=== PATIENT | male | born 1950 | race Caucasian/White ===

== ENCOUNTER 2023-09-20 13:29 | Outpatient (CLI) | payer MEDICARE, SELFPAY ==
--- NOTE | 2023-09-20 13:30 | MR_ITS ---
FINAL REPORT CLINICAL HISTORY: Mulitple falls FINDINGS: Multiplanar MR imaging of the brain was performed without contrast. Motion artifact seen on many sequences. There is mild age-appropriate atrophy. There are scattered foci of increased T2 signal in the cerebral white matter that have a nonspecific appearance but likely represent mild chronic ischemic/gliotic changes. There is no evidence of intracranial hemorrhage or mass. No abnormal ventricular dilatation is identified. No abnormal extra-axial fluid collection is seen. No abnormality is seen on the diffusion weighted images. The posterior fossa and brainstem are unremarkable. Normal major vessel vascular flow voids are seen. IMPRESSION: Age-appropriate atrophy and mild chronic ischemic/gliotic changes. No acute intracranial abnormality. Reviewed, Interpreted and Dictated by Sudheer Hancock III, MD Transcribed by Kendy Soto Authenticated and [facility]
== END 2023-09-20 23:59 ==
LOC: RAD 13:30
PROVIDERS: PCP Specialist; Visit Provider Specialist
DX: R29.6 Repeated falls (principal); R26.9 Unspecified abnormalities of gait and mobility; R51.9 Headache, unspecified
CPT/HCPCS: 70551; 94762

== ENCOUNTER 2023-10-06 12:14 | Outpatient (CLI) | payer MEDICARE, SELFPAY ==
--- NOTE | 2023-10-06 12:21 | XR_ITS ---
FINAL REPORT CLINICAL HISTORY: Eval. for myelopathy FINDINGS: CERVICAL SPINE COMPLETE FLEXION/EXTENSION Six views demonstrate no acute fracture. There are mild and moderate degenerative changes. There is mild anterolisthesis of C4 on 5. There is no abnormal movement with flexion and extension maneuvers. Bilateral coronary artery calcification is identified. IMPRESSION: Degenerative changes as above. LUMBAR SPINE Three views demonstrate no acute fracture. There are mild and moderate degenerative changes with osteophytes. Vascular calcification is identified. There is no malalignment. IMPRESSION: Degenerative changes as above. Reviewed, Interpreted and Dictated by Sudheer Hancock III, MD Transcribed by Martha Kumari Authenticated and [facility]
== END 2023-10-06 23:59 ==
LOC: RAD 12:16
PROVIDERS: Visit Provider Specialist
DX: M54.2 Cervicalgia (principal); R29.6 Repeated falls; R26.9 Unspecified abnormalities of gait and mobility
CPT/HCPCS: 72084

== ENCOUNTER → 2023-10-09 13:27 | Outpatient (CLI) | payer MEDICARE, SELFPAY | LOC: SL 13:28 | PROVIDERS: PCP Family Medicine; Visit Provider Nurse Practitioner Family | DX: G47.33 Obstructive sleep apnea (adult) (pediatric) (principal) | CPT/HCPCS: 94762 ==

== ENCOUNTER → 2023-10-25 20:30 | Outpatient (CLI) | payer MEDICARE, SELFPAY | LOC: SL 20:31 | PROVIDERS: PCP Family Medicine; Visit Provider Specialist | DX: G47.33 Obstructive sleep apnea (adult) (pediatric) (principal) | CPT/HCPCS: 95811 ==

== ENCOUNTER 2023-11-27 19:38 | Emergency (ER) | payer MEDICARE, SELFPAY ==
[2023-11-27] VITALS (7 sets, daily range): BP systolic 115–155; BP diastolic 75–103; PULSE 86–100; RESP 16–18; TEMP 36.6–36.9; O2SAT 94–96; BMI 37.2
--- NOTE | 2023-11-27 19:47 | HMH.EDGENADL ---
Discharge Plan Disposition Patient Disposition: Home, Self-Care Condition: Good Prescriptions Prescriptions: New cefadroxil 500 mg capsule 500 mg PO BID 7 Days Qty: 14 0RF oxycodone 5 mg tablet 5 mg PO Q8H PRN (Reason: pain) 3 Days Qty: 9 0RF No Action ketoconazole 2 % cream topical Patient Comments: APPLY CREAM TOPICALLY TO AFFECTED AREA TWICE DAILY NEEDED WHEN FLARED. rosuvastatin 20 mg tablet 20 mg PO DAILY Patient Comments: TAKE 1 TABLET BY MOUTH ONCE DAILY carvedilol 25 mg tablet 25 mg PO ONCE Patient Comments: TAKE 1 TABLET BY MOUTH ONCE DAILY FOR 90 DAYS Jardiance 25 mg tablet 25 mg PO DAILY Patient Comments: TAKE 1 TABLET BY MOUTH ONCE DAILY Januvia 100 mg tablet 100 mg PO DAILY Patient Comments: TAKE 1 TABLET BY MOUTH ONCE DAILY Eliquis 5 mg tablet 5 mg PO BID albuterol sulfate 0.63 mg/3 mL solution for nebulization 0.63 mg inhalation Q4-6H PRN tamsulosin 0.4 mg capsule 0.4 mg PO HS meloxicam 7.5 mg tablet 7.5 mg PO DAILY Patient Comments: TAKE 1 TABLET BY MOUTH ONCE DAILY FOR 14 DAYS carbidopa-levodopa 25-100 mg tablet 2 tab PO TID Qty: 180 3RF Referrals Follow up/Referrals: Daniel Sy MD [Primary Care Provider] - See instructions Activity Restrictions/Add. Instructions Additional Instructions/Restrictions: You have been evaluated in the ED for your complaints. You may follow-up with your PCP in the next 3 to 5 days. Please return to ED for any new or worsening symptoms. As discussed, please keep your pressure lacerations clean and dry over the next week and do not soak the lacerations and water to the sutures do not dissolve too early. They should resolve over the next 7 to 10 days. You may apply skin lightening creams to decrease scarring. You should receive a call from [facility] at for follow-up concerning your nasal bone fractures. behavioral health consultant?[address] [place] [address] [phone] Clinical Impressions Clinical Impression: Fall, Nasal bones, open fracture, Left shoulder pain, Facial laceration Discharge ED Provider: Vlad Carrillo Adult [facility] General Chief complaint: Fall Stated complaint: Fall from standing position Time Seen by Provider: 11/27/23 19:46 History of Present Illness HPI narrative: 73-year-old male with past medical history significant for ROHITH, HTN, pulmonary embolism, DVT, DM 2, CAD, atrial fibrillation, on Eliquis, presents today for evaluation after having a fall. Patient states that he tripped over his puppy, stretched his arm out to catch his fall and hit his head on the corner of the door. He did not lose consciousness. Complains of left shoulder pain. Denies any neck pain or back pain. Denies any chest wall pain or abdominal pain. Related Data Home Medications Medication Instructions Recorded Confirmed albuterol sulfate 0.63 mg/3 mL 0.63 mg inhalation Q4-6H PRN 08/30/23 10/25/23 solution for nebulization apixaban 5 mg tablet (Eliquis) 5 mg PO BID 08/30/23 10/25/23 carvedilol 25 mg tablet 25 mg PO ONCE 08/30/23 10/25/23 empagliflozin 25 mg tablet 25 mg PO DAILY 08/30/23 10/25/23 (Jardiance) ketoconazole 2 % topical cream applic topical 08/30/23 10/25/23 rosuvastatin 20 mg tablet 20 mg PO DAILY 08/30/23 10/25/23 sitagliptin phosphate 100 mg 100 mg PO DAILY 08/30/23 10/25/23 tablet (Januvia) meloxicam 7.5 mg tablet 7.5 mg PO DAILY 10/25/23 10/25/23 tamsulosin 0.4 mg capsule 0.4 mg PO HS 10/25/23 10/25/23 Previous Rx's Medication Instructions Recorded carbidopa 25 mg-levodopa 100 mg 2 tab PO TID Parkinsonian syndrome 10/25/23 tablet #180 tabs cefadroxil 500 mg capsule 500 mg PO BID 7 days #14 caps 11/27/23 oxycodone 5 mg tablet 5 mg PO Q8H PRN pain 3 days #9 tabs 11/27/23 Allergies Allergy/AdvReac Type Severity Reaction Status Date / Time No Known Allergies Allergy Verified 08/30/23 09:04 [facility] Disclaimer: The information contained in this section may have been updated after the patient was seen, as this information can be updated by other users. Medical History (Updated 11/27/23 @ 22:59 by Vlad Carrillo DO) ROHITH (obstructive sleep apnea) Neck pain Headache Cataracts, bilateral Arthritis Surgical History History of hernia surgery History of bilateral cataract extraction Family History Other COPD (chronic obstructive pulmonary disease) Coronary artery disease Hyperlipidemia Hypertension Social History Smoking Status: Former smoker alcohol intake: current alcohol intake frequency: other substance use type: denies use current occupational status: retired Travel in the last 8 weeks: None household members: spouse housing: house marital status: number of children: 7 ROS Obtained: Yes All systems reviewed & no additional complaints except as documented Physical Exam General General appearance: alert and in no apparent distress Head Head exam: normocephalic and other (4 cm laceration across the midline of the forehead. There is also a 1 cm laceration over the nose) Eye Eye exam: Present normal appearance, PERRL and EOMI ENT ENT exam: Present normal oropharynx and mucous membranes moist Neck Neck exam: Present full ROM; Absent meningismus Respiratory Respiratory exam: Absent respiratory distress, wheezes, stridor or accessory muscle use Cardiovascular Cardiovascular exam: Present normal rhythm Abdominal Exam Abdominal exam: Present soft; Absent distention, tenderness, guarding, rebound or rigidity Extremities Exam Extremities exam: Present tenderness (Tenderness to palpation of the left shoulder and left humerus without external signs extremity. There is a skin tear located at the left elbow. And on the left forearm.) Neurological Exam Neurological exam: Present alert, oriented X3 and CN II-XII intact; Absent motor sensory deficit Psychiatric Psychiatric exam: Present normal affect and normal mood Skin Skin exam: Present warm and dry Medical Decision Making Medical Records Medical records reviewed: Yes I reviewed the patient's medical records. Zachariah Inquiry Pt receiving controlled substance: No Zachariah was queried for this patient: No Vital Signs: 11/27/23 19:38 11/27/23 20:41 11/27/23 21:01 Temperature 97.9 F Temperature Source Oral Pulse Rate 95 H 97 H Pulse Rate [Left] 95 H Respiratory Rate 18 Blood Pressure 155/93 H 134/91 H Blood Pressure [Right Arm] 129/76 Blood Pressure Mean 103 104 Blood Pressure Mean [Right Arm] 93 Blood Pressure Position 02 Sat by Pulse Oximetry 95 95 95 Oxygen Delivery Method Room Air Room Air Room Air 11/27/23 21:31 11/27/23 21:31 11/27/23 22:01 Temperature Temperature Source Pulse Rate 94 H 99 H 98 H Pulse Rate [Left] Respiratory Rate 16 Blood Pressure 149/99 H 149/99 H 154/103 H Blood Pressure [Right Arm] Blood Pressure Mean 110 109 Blood Pressure Mean [Right Arm] Blood Pressure Position Sitting 02 Sat by Pulse Oximetry 96 94 L 94 L Oxygen Delivery Method Room Air Room Air Room Air 11/27/23 22:31 Temperature Temperature Source Pulse Rate 86 Pulse Rate [Left] Respiratory Rate Blood Pressure 142/95 H Blood Pressure [Right Arm] Blood Pressure Mean 99 Blood Pressure Mean [Right Arm] Blood Pressure Position 02 Sat by Pulse Oximetry 95 Oxygen Delivery Method Room Air Lab Data Lab Results 11/27/23 20:00: WBC 11.4 H, RBC 5.63, Hgb 17.5, Hct 52.3 H, MCV 93.0, MCH 31.2, MCHC 33.5, RDW 13.9, Plt Count 192, MPV 7.5, Neut % (Auto) 74.7, Lymph % (Auto) 17.3, [place] % (Auto) 6.1, Eos % (Auto) 1.1, Baso % (Auto) 0.8, Neut # (Auto) 8.5 H, Lymph # (Auto) 2.0, [place] # (Auto) 0.7, Eos # (Auto) 0.1, Baso # (Auto) 0.1, PT 11.4, INR 1.06, Sodium 139, Potassium 4.3, Chloride 107, Carbon Dioxide 24, Anion Gap 12.3, BUN 19, Creatinine 0.90, Estimated Creat Clear 113, Estimated GFR 83, Est GFR ( Amer) 100, Glucose 158 H, Calcium 9.6, Total Bilirubin 1.1, AST 31, ALT 26, Alkaline Phosphatase 89, Total Protein 7.7, Albumin 4.5, Globulin 3.2, Albumin/Globulin Ratio 1.4 11/27/23 20:00 11/27/23 20:00 Orders (Tests/Meds): ED MEDICATIONS Discontinued Medications Generic Name Dose Route Start Last Admin Trade Name Freq PRN Reason Stop Dose Admin Cefazolin Sodium 2 gm 11/27/23 21:01 11/27/23 21:14 Cefazolin 2gm Vial IV 11/27/23 21:02 2 gm ONCE ONE Administration Lidocaine/Prilocaine 5 gm 11/27/23 19:51 11/27/23 20:39 Lidocaine/Prilocaine 5gm Tube TP 11/27/23 19:52 5 gm ONCE ONE Administration Morphine Sulfate 4 mg 11/27/23 19:51 11/27/23 20:39 Morphine 4mg/Ml Syringe IV 11/27/23 19:52 4 mg ONCE ONE Administration Ondansetron HCl 4 mg 11/27/23 19:51 11/27/23 20:39 Ondansetron 4mg/2ml Vial IV 11/27/23 19:52 4 mg ONCE ONE Administration ORDERS Category Date Time Status CT cervical spine wo con Stat Cat Scan 11/27/23 19:[address] facial bones wo con Stat Cat Scan 11/27/23 19:[address] head/brain wo con Stat Cat Scan 11/27/23 19:51 Completed Elbow XR left 2 views [XR elbow LT 2V] Stat Exams 11/27/23 19:51 Completed Humerus XR left [XR humerus LT] Stat Exams 11/27/23 19:51 Completed Shoulder XR left minimum 2 views [XR shoulder LT min 2V Exams 11/27/23 19:51 Completed ] Stat CBC w/Auto Diff [Complete Blood Count Auto Diff] Stat Lab 11/27/23 20:00 Completed CMP [Comprehensive Metabolic Panel] Stat Lab 11/27/23 20:00 Completed PT INR [Prothrombin Time INR] Stat Lab 11/27/23 20:00 Completed Medical Decision Narrative: 73-year-old male with past medical history significant for ROHITH, HTN, pulmonary embolism, DVT, DM 2, CAD, atrial fibrillation, on Eliquis, presents today for evaluation after having a fall. Patient states that he tripped over his puppy, stretched his arm out to catch his fall and hit his head on the corner of the door. He did not lose consciousness. Complains of left shoulder pain. Tetanus is up-to-date. On assessment he was hemodynamically stable and in no acute distress. Afebrile. There was no midline translocation of the C/T/L-spine. He did have a 4 cm laceration across the midline of the forehead and a 1 cm laceration over the nose. No chest or abdominal tenderness. He did have tenderness over the left shoulder and left humerus. There was a skin tear over the left elbow and left forearm. No other extremity tenderness. Diagnoses include but limited to intracranial bleed, extremity fracture, facial laceration, among others. Patient's lab work today has been remarkable for a WBC of 11.4. PT/INR within range at 11.4/1.06.. X-ray imaging of the right shoulder, right humerus and right elbow are without any acute bony abnormalities on my informal interpretation. Radiology report confirmed. Head CT without any acute abnormalities. Facial CT reveals a mildly displaced comminuted nasal bone fracture. Nondisplaced fracture of anterior nasal septum. I did repair patient's forehead laceration with 1 running suture, 5-0 fast gut. Nose laceration repaired with three 5-0 fast gut simple interrupted sutures. Will send home with Romie as well as referral to plastic surgery given his nasal fractures. Patient verbalized understanding agree with plan. Provided with return precautions. Subsequent discharged stable in no acute distress. Procedures Laceration Laceration 1: Site: face (forehead) Size (cm): 4 Description: linear Depth: simple, single layer Local Anesthetic: lidocaine 1% Amount of anesthesia used (mL): 3 Pre-repair: wound explored (Irrigated with Hibiclens and normal saline.) Skin layer closed with: other (Fast gut) Size (cm): 5-0 Number of sutures: 1 Technique: running Laceration 2: Site: face (Nose) Size (cm): 1 Description: linear Depth: simple, single layer Local Anesthetic: lidocaine 1% Amount of anesthesia used (mL): 2 Pre-repair: wound explored and irrigated extensively (Irrigated with saline and Hibiclens) Skin layer closed with: other (Fast-absorbing gut) Size (cm): 5-0 Number of sutures: 3 Technique: simple, interrupted Critical Care Critical Care Time Critical Care Time: No
--- NOTE | 2023-11-27 19:51 | CT_ITS ---
PROCEDURE INFORMATION: Exam: CT Maxillofacial Without Contrast Exam date and time: 11/27/2023 8:05 PM Age: 73 years old Clinical indication: Pain; Additional info: Facial pain TECHNIQUE: Imaging protocol: Computed tomography of the face without contrast. Radiation optimization: All CT scans at this facility use at least one of these dose optimization techniques: automated exposure control; mA and/or kV adjustment per patient size (includes targeted exams where dose is matched to clinical indication); or iterative reconstruction. COMPARISON: CT HEAD/BRAIN WO CON 11/27/2023 8:04 PM FINDINGS: Orbital cavities: Orbits are normal. Globes are unremarkable. Bones: Mildly displaced and comminuted bilateral nasal bone fractures. Paranasal sinuses: Mild bilateral ethmoid sinus mucosal thickening. The remaining paranasal sinuses are within normal limits. Soft tissues: Frontal scalp soft tissue swelling and subcutaneous gas foci consistent with a laceration. Vasculature: Extensive atherosclerotic plaque in the distal internal carotid arteries. Nasal cavity: Nondisplaced fracture of the anterior nasal septum. IMPRESSION: 1. Mildly displaced and comminuted bilateral nasal bone fractures. 2. Nondisplaced fracture of the anterior nasal septum. 3. Frontal scalp soft tissue swelling and subcutaneous gas foci consistent with a laceration.
--- NOTE | 2023-11-27 19:51 | XR_ITS ---
PROCEDURE INFORMATION: Exam: XR Left Elbow Exam date and time: 11/27/2023 8:04 PM Age: 73 years old Clinical indication: Pain; Elbow; Left TECHNIQUE: Imaging protocol: Radiologic exam of the left elbow. Views: 1 or 2 views. COMPARISON: CR XR HUMERUS LT 11/27/2023 8:04 PM FINDINGS: Bones/joints: No fracture or dislocation. No significant arthropathy. Calcifications adjacent to the medial humeral epicondyle are likely the sequela of chronic medial epicondylitis. Soft tissues: Normal. IMPRESSION: No acute findings.
--- NOTE | 2023-11-27 19:51 | CT_ITS ---
PROCEDURE INFORMATION: Exam: CT Head Without Contrast Exam date and time: 11/27/2023 8:04 PM Age: 73 years old Clinical indication: Pain; Additional info: Head injury TECHNIQUE: Imaging protocol: Computed tomography of the head without contrast. Radiation optimization: All CT scans at this facility use at least one of these dose optimization techniques: automated exposure control; mA and/or kV adjustment per patient size (includes targeted exams where dose is matched to clinical indication); or iterative reconstruction. COMPARISON: MR HEAD/BRAIN WO CON 09/20/2023 1:55 PM FINDINGS: Brain: Mild supratentorial white matter hypodensities are likely the sequela of chronic small vessel ischemic disease. Mild atrophy. No hemorrhage, edema, or mass effect. Cerebral ventricles: No ventriculomegaly. Paranasal sinuses: Visualized sinuses are unremarkable. No fluid levels. Mastoid air cells: Visualized mastoid air cells are well aerated. Bones: Mildly displaced and comminuted bilateral nasal bone fractures. Soft tissues: Frontal scalp soft tissue swelling and subcutaneous gas foci consistent with a laceration. IMPRESSION: 1. No acute intracranial findings. 2. Frontal scalp soft tissue swelling and subcutaneous gas foci consistent with a laceration. 3. Mildly displaced and comminuted bilateral nasal bone fractures.
--- NOTE | 2023-11-27 19:51 | CT_ITS ---
PROCEDURE INFORMATION: Exam: CT Cervical Spine Without Contrast Exam date and time: 11/27/2023 8:07 PM Age: 73 years old Clinical indication: Pain; Additional info: Fall TECHNIQUE: Imaging protocol: Computed tomography of the cervical spine without contrast. Radiation optimization: All CT scans at this facility use at least one of these dose optimization techniques: automated exposure control; mA and/or kV adjustment per patient size (includes targeted exams where dose is matched to clinical indication); or iterative reconstruction. COMPARISON: CR XR MULTIPLE SPINE 6+V 10/06/2023 12:25 PM FINDINGS: Bones: No cervical spine fracture or acute listhesis. [id number] multilevel degenerative disc disease is greatest at C3-C4. [id number] multilevel bilateral facet arthropathy is greatest on the left. 1 mm of grade 1 anterolisthesis of C2 over C3 is secondary to facet arthropathy. Lungs: Lung apices are normal. Soft tissues: Unremarkable. IMPRESSION: No cervical spine fracture or acute listhesis.
--- NOTE | 2023-11-27 19:51 | XR_ITS ---
PROCEDURE INFORMATION: Exam: XR Left Humerus Exam date and time: 11/27/2023 8:04 PM Age: 73 years old Clinical indication: Pain; Upper arm; Left TECHNIQUE: Imaging protocol: Radiologic exam of the left humerus. Views: 2 or more views. COMPARISON: CR XR SHOULDER LT MIN 2V 11/27/2023 8:04 PM FINDINGS: Bones/joints: Normal. Soft tissues: Normal. IMPRESSION: No acute findings.
--- NOTE | 2023-11-27 19:51 | XR_ITS ---
PROCEDURE INFORMATION: Exam: XR Left Shoulder Exam date and time: 11/27/2023 8:04 PM Age: 73 years old Clinical indication: Pain; Shoulder; Left TECHNIQUE: Imaging protocol: Radiologic exam of the left shoulder. Views: 2 or more views. COMPARISON: CR XR HUMERUS LT 11/27/2023 8:04 PM FINDINGS: Bones/joints: No fracture or dislocation. Mild degenerative changes of the acromioclavicular and glenohumeral joints. Soft tissues: Normal. IMPRESSION: No acute findings.
[2023-11-27 20:10] LABS: Basophils # 0.1 K/mm3 (0-0.2); Basophils % 0.8 % (0.1-2.0); Eosinophils # 0.1 K/mm3 (0.0-0.4); Eosinophils % 1.1 % (0.1-12.0); Hematocrit 52.3 % (42.0-52.0); Hemoglobin 17.5 g/dL (14.1-18.0); Lymphocytes % 17.3 % (10-50); Mean Corpuscular HGB Conc 33.5 g/dL (31.8-35.4); Mean Corpuscular Hemoglobin 31.2 pg (27.0-31.2); Mean Platelet Volume 7.5 fl (7.4-10.4); Monocytes # 0.7 K/mm3 (0.1-1.0); Monocytes % 6.1 % (1.7-9.3); Neutrophils # 8.5 K/mm3 (1.8-7.8); Neutrophils % 74.7 % (37.0-80.0); Platelet Count 192 K/mm3 (142-424); Red Blood Count 5.63 M/mm3 (4.60-6.20); Red Cell Distribution Width 13.9 % (11.5-17.5); White Blood Count 11.4 K/mm3 (4.8-10.8)
[2023-11-27 20:16] LABS: Chloride 107 mmol/L (98-107); Sodium 139 mmol/L (136-145)
[2023-11-27 20:17] LABS: Potassium 4.3 mmoL/L (3.5-5.1)
[2023-11-27 20:19] LABS: Alanine Aminotransferase 26 U/L (12-78); Albumin Level 4.5 g/dl (3.5-5.0); Albumin/Globulin Ratio 1.4 (1.1-1.8); Alkaline Phosphatase 89 U/L (38-126); Anion Gap 12.3 mEq/L (5-15); Aspartate Amino Transferase 31 U/L (17-59); Bilirubin,Total 1.1 mg/dl (0.2-1.3); Blood Urea Nitrogen 19 mg/dl (9-20); Carbon Dioxide 24 mmol/L (22.0-30.0); Creatinine Clearance Estimated 113 mL/min (50-200); Estimated Glomerular Filt Rate 83 ml/min (>60); GFR (African American) 100 ML/MIN (>60); Globulin 3.2 g/dL (1.3-3.2); Glucose 158 mg/dl (74-100); Total Protein,Serum 7.7 g/dl (6.3-8.2)
[2023-11-27 20:20] LABS: Calcium 9.6 mg/dl (8.4-10.2)
[2023-11-27 20:21] LABS: INR 1.06 (0.9-1.1); Prothrombin Time 11.4 seconds (10.1-12.5)
[2023-11-27] MEDS: LIDOCAINE/PRILOCAINE 5GM TUBE 5 GM TP (20:39)
[2023-11-27] MEDS: MORPHINE 4MG/ML SYRINGE 4 MG IV (20:39)
[2023-11-27] MEDS: ONDANSETRON 4MG/2ML VIAL 4 MG IV (20:39)
--- NOTE | 2023-11-27 20:50 | PC.NURSE ---
Family at bedside, updated on scans and medication we have given will update when scans come back
[2023-11-27] MEDS: CEFAZOLIN 2GM VIAL 2 GM IV (21:14)
--- NOTE | 2023-11-27 22:40 | PC.NURSE ---
Contacted [facility] over consult with plastics for this pt they advised they would call back.
== END 2023-11-27 23:26 | disposition home or self-care (01) ==
PROVIDERS: Emergency Provider Emergency Medicine; PCP Family Medicine
DX: S02.2XXB Fracture of nasal bones, initial encounter for open fracture (principal); S01.81XA Laceration without foreign body of other part of head, initial encounter; M25.562 Pain in left knee; I48.0 Paroxysmal atrial fibrillation; E11.9 Type 2 diabetes mellitus without complications; I11.9 Hypertensive heart disease without heart failure; I25.10 Atherosclerotic heart disease of native coronary artery without angina pectoris; Z79.01 Long term (current) use of anticoagulants; Z86.718 Personal history of other venous thrombosis and embolism; Z86.711 Personal history of pulmonary embolism; W01.198A Fall on same level from slipping, tripping and stumbling with subsequent striking against other object, initial encounter; Z79.84 Long term (current) use of oral hypoglycemic drugs
CPT/HCPCS: 12013; 70450; 70486; 72125; 73030; 73060; 73070; 80053; 85025; 85610; 96374; 96375; 99285; J0690; J2405

== ENCOUNTER 2024-01-31 12:51 | Outpatient (CLI) | payer MEDICARE, SELFPAY ==
[2024-01-31 14:13] LABS: Blood Urea Nitrogen 17 mg/dl (9-20); Estimated Glomerular Filt Rate 83 ml/min (>60); GFR (African American) 100 ML/MIN (>60)
== END 2024-01-31 23:59 | disposition home or self-care (01) ==
LOC: LAB 12:54
PROVIDERS: Visit Provider Specialist
DX: G72.9 Myopathy, unspecified (principal); R29.6 Repeated falls
CPT/HCPCS: 36415; 82565; 84520

== ENCOUNTER 2024-02-01 13:05 | Outpatient (CLI) | payer MEDICARE, SELFPAY ==
--- NOTE | 2024-02-01 13:06 | MR_ITS ---
FINAL REPORT TECHNIQUE: Multi plantar and multisequence imaging of the cervical spine was obtained before and after the administration of intravenous contrast. CLINICAL HISTORY: Frequent falls/myopathy COMPARISON: None FINDINGS: There is motion present, which limits overall image quality. There is straightening of the normal cervical lordosis. Vertebral body height is preserved. Bone marrow signal intensity is normal. There is no edema or pathologic marrow replacement. The signal intensity within the substance of the spinal cord is normal. There is no paraspinal mass or fluid collection. C2-C3: There is left facet osteoarthropathy which produces mild left neural foraminal narrowing. C3-C4: An annular bulge is present with facet osteoarthropathy and osteophytes. There is mild canal stenosis, with moderate to severe bilateral neural foraminal narrowing. C4-C5: An annular bulge is present with facet osteoarthropathy and osteophytes with mild bilateral neural foraminal narrowing. C5-C6: An annular bulge is present without evidence of central canal stenosis or neural foraminal narrowing. C6-C7: An annular bulge is present without evidence of central canal stenosis or neural foraminal narrowing. C7-T1: There is no focal disc herniation, central stenosis or neural foraminal narrowing. Postcontrast images reveal no pathologic contrast enhancement. IMPRESSION: Multilevel cervical degenerative change is present, most severe at the C3-4 level as described. Reviewed, Interpreted and Dictated by Bhavna Billingsley MD Transcribed by Romana Swan Authenticated and [facility]
== END 2024-02-01 23:59 | disposition home or self-care (01) ==
LOC: RAD 13:06
PROVIDERS: PCP Family Medicine; Visit Provider Specialist
DX: G72.9 Myopathy, unspecified (principal); R29.6 Repeated falls
CPT/HCPCS: 72156; A9576

== ENCOUNTER 2024-02-21 09:00 | Outpatient (RCR) | payer MEDICARE, SELFPAY | END 2024-03-04 13:56 | disposition home or self-care (01) | LOC: PT 09:00 | PROVIDERS: Visit Provider Family Medicine | DX: M75.02 Adhesive capsulitis of left shoulder (principal) | CPT/HCPCS: 97010; 97014; 97110; 97140; 97163; 97164; 97530; G0283 ==

== ENCOUNTER 2024-05-09 09:00 | Outpatient (RCR) | payer MEDICARE, SELFPAY | END 2024-05-28 16:15 | disposition home or self-care (01) | LOC: PT 09:00 | PROVIDERS: Visit Provider Emergency Medicine | DX: M25.512 Pain in left shoulder (principal) | CPT/HCPCS: 97014; 97110; 97163; 97530; G0283 ==

== ENCOUNTER 2024-07-04 10:00 | Outpatient (RCR) | payer MEDICARE, SELFPAY | END 2024-07-16 08:51 | disposition home or self-care (01) | LOC: PT 10:00 | PROVIDERS: Visit Provider Emergency Medicine | DX: R29.6 Repeated falls (principal) | CPT/HCPCS: 97110; 97112; 97163; 97530 ==

== ENCOUNTER 2024-09-12 10:00 | Outpatient (RCR) | payer MEDICARE, SELFPAY | END 2024-09-12 23:59 | disposition home or self-care (01) | LOC: PT 10:00 | PROVIDERS: PCP Family Medicine; Visit Provider Emergency Medicine | DX: R27.8 Other lack of coordination (principal) | CPT/HCPCS: 97110; 97112; 97163; 97530 ==

== ENCOUNTER 2024-10-09 10:00 | Outpatient (RCR) | payer MEDICARE, SELFPAY | END 2024-10-09 23:59 | disposition home or self-care (01) | LOC: PT 10:00 | PROVIDERS: PCP Family Medicine; Visit Provider Emergency Medicine | DX: R27.8 Other lack of coordination (principal) | CPT/HCPCS: 97110; 97112; 97530 ==

== ENCOUNTER 2024-11-06 09:00 | Outpatient (RCR) | payer MEDICARE, SELFPAY | END 2024-11-12 11:01 | disposition home or self-care (01) | LOC: PT 09:00 | PROVIDERS: PCP Family Medicine; Visit Provider Emergency Medicine | DX: R27.8 Other lack of coordination (principal) | CPT/HCPCS: 97110; 97112; 97530 ==

== ENCOUNTER 2025-05-28 11:00 | Outpatient (RCR) | payer MEDICARE, SELFPAY | END 2025-06-11 23:59 | disposition home or self-care (01) | LOC: PT.CARL 11:00 | PROVIDERS: PCP Emergency Medicine; Visit Provider Emergency Medicine | DX: R26.89 Other abnormalities of gait and mobility (principal) | CPT/HCPCS: 97110; 97112; 97162; 97530 ==

== ENCOUNTER 2025-05-31 09:27 | Emergency (ER) | payer MEDICARE, SELFPAY ==
--- NOTE | 2025-05-31 09:36 | XR_ITS ---
PROCEDURE INFORMATION: Exam: XR Left Shoulder Exam date and time: 05/31/2025 9:47 AM Age: 74 years old Clinical indication: Injury or trauma; Fall; Blunt trauma (contusions or hematomas); Shoulder; Left; Additional info: Fall, left shoulder injury/pain TECHNIQUE: Imaging protocol: Radiologic exam of the left shoulder. Views: 2 or more views. COMPARISON: CR XR SHOULDER LT MIN 2V 11/27/2023 8:04 PM FINDINGS: Bones/joints: No acute fractures, dislocations, or focal bone lesions. Humeral head migrates superiorly and narrows the subacromial space. Small Hill-Sachs lesion in the superior posterior humeral head. Mild bone hypertrophy along the inferior humeral head. Joint spaces are well preserved. Soft tissues: No soft tissue abnormalities or radiopaque foreign bodies. No soft tissue gas. IMPRESSION: 1. No acute fractures or dislocations in the left shoulder. No significant interval change. 2. Narrow subacromial space indicates rotator cuff tendinopathy. 3. Brewster-Sachs lesion along the superior humeral head indicative previous glenohumeral dislocation. 4. Mild osteoarthritis in the left glenohumeral joint.
--- NOTE | 2025-05-31 09:36 | CT_ITS ---
PROCEDURE INFORMATION: Exam: CT Cervical Spine Without Contrast Exam date and time: 05/31/2025 9:58 AM Age: 74 years old Clinical indication: Injury or trauma; Additional info: Fall, head trauma and headache. On eliquis TECHNIQUE: Imaging protocol: Computed tomography of the cervical spine without contrast. Radiation optimization: All CT scans at this facility use at least one of these dose optimization techniques: automated exposure control; mA and/or kV adjustment per patient size (includes targeted exams where dose is matched to clinical indication); or iterative reconstruction. COMPARISON: MR CERVICAL SPINE WO/W CON 02/01/2024 1:18 PM FINDINGS: Bones: No acute fracture. Normal alignment. No significant disc bulge or herniation. No severe spinal canal stenosis. No significant neural foraminal narrowing. Mild multilevel disc space narrowing is most pronounced at C3-C4. Facet hypertrophy at multiple levels. Lungs: Lung apices are normal. Soft tissues: No paraspinal or prevertebral soft tissue masses. Calcification of the ligamentum nuchae at multiple levels. IMPRESSION: 1. No acute findings in the cervical spine. 2. Multilevel degenerative disc disease and facet hypertrophy in the cervical spine.
--- NOTE | 2025-05-31 09:36 | XR_ITS ---
PROCEDURE INFORMATION: Exam: XR Chest Exam date and time: 05/31/2025 9:47 AM Age: 74 years old Clinical indication: Injury or trauma; Fall; Blunt trauma (contusions or hematomas); Additional info: Fall, head trauma and left shoulder pain TECHNIQUE: Imaging protocol: Radiologic exam of the chest. Views: 1 view. COMPARISON: MR CERVICAL SPINE WO/W CON 02/01/2024 1:18 PM FINDINGS: Lungs: Her linear opacities in the lower halves of both lungs. No airspace consolidation or nodules. Low lung volumes. Pleural spaces: No pleural effusion. No pneumothorax. Heart/Mediastinum: No abnormalities. No cardiomegaly. No pulmonary vascular congestion. Bones/joints: No fractures or bone lesions. IMPRESSION: 1. No acute findings in the chest. 2. Bibasilar discoid atelectasis.
--- NOTE | 2025-05-31 09:36 | CT_ITS ---
PROCEDURE INFORMATION: Exam: CT Head Without Contrast Exam date and time: 05/31/2025 9:56 AM Age: 74 years old Clinical indication: Injury or trauma; Additional info: Fall, head trauma and headache. On eliquis TECHNIQUE: Imaging protocol: Computed tomography of the head without contrast. Radiation optimization: All CT scans at this facility use at least one of these dose optimization techniques: automated exposure control; mA and/or kV adjustment per patient size (includes targeted exams where dose is matched to clinical indication); or iterative reconstruction. COMPARISON: CT HEAD/BRAIN WO CON 11/27/2023 8:04 PM FINDINGS: Brain: No hemorrhage. Mild low density in the white matter of both cerebral hemispheres without mass effect. No other intra-axial or extra-axial lesions or masses. No midline shift. Cerebral ventricles: Ventricular systems are age-appropriate and unchanged. Paranasal sinuses: Visualized sinuses are well aerated. No fluid levels. Mastoid air cells: Visualized mastoid air cells are well aerated. Bones: Right nasal bone fracture is suspected. No other facial bone or skull fractures. Soft tissues: Small left frontal scalp hematoma. IMPRESSION: 1. No acute intracranial abnormality. 2. Mild white matter microvascular disease. 3. Right nasal bone fracture be acute or chronic and is an interval change since 11/27/2023. 4. Small left frontal scalp hematoma.
--- NOTE | 2025-05-31 09:36 | ECG_ITS ---
APPROVED REPORT Exam: Resting ECG HR:95 bpm ECG Measurements Heart Rate 95 AXES QRSd 113 QRS -71 QT 339 T 84 QTc 392 Conclusion ATRIAL FIBRILLATION LEFT AXIS DEVIATION [QRS AXIS < -30] PATTERN CONSISTENT WITH PULMONARY DISEASE MODERATE INTRAVENTRICULAR CONDUCTION DELAY [110+ ms QRS DURATION] ABNORMAL ECG UNCONFIRMED REPORT A-fib with ventricular rate of [address] elevation or depression. Electronically signed by : TAISHA RAO, 06/01/2025 07:03:34
--- NOTE | 2025-05-31 09:38 | [facility].EDGENADL ---
Discharge Plan Disposition Patient Disposition: Home, Self-Care Prescriptions Prescriptions: No Action rosuvastatin 20 mg tablet 20 mg PO DAILY Patient Comments: TAKE 1 TABLET BY MOUTH ONCE DAILY carvedilol 25 mg tablet 25 mg PO ONCE Patient Comments: TAKE 1 TABLET BY MOUTH ONCE DAILY FOR 90 DAYS Jardiance 25 mg tablet 25 mg PO DAILY Patient Comments: TAKE 1 TABLET BY MOUTH ONCE DAILY Januvia 100 mg tablet 100 mg PO DAILY Patient Comments: TAKE 1 TABLET BY MOUTH ONCE DAILY Eliquis 5 mg tablet 5 mg PO BID tamsulosin 0.4 mg capsule 0.4 mg PO HS Referrals Follow up/Referrals: Balwinder Lopez MD [Primary Care Provider, Medical] - See instructions Activity Restrictions/Add. Instructions Additional Instructions/Restrictions: Your CT scans and x-rays did not show any evidence of internal bleeding or broken bones. The cuts to your head will heal over time. The rhea will need to remain in place for about a week. Follow-up with your primary doctor to have them removed. If they develop signs of infection, such as increased redness, swelling, pus draining from the wound or fever, return to the emergency department for evaluation. The protective strips over your left shoulder will fall off over time. If they do fall off, do not put them back on. If you develop any new or worsening symptoms, such as increased confusion, facial drooping, weakness of one or both sides of the body, worsening headache, or if you become concerned for your help for any reason, return to the emergency department for evaluation Clinical Impressions Clinical Impression: Laceration of scalp, Abrasion of left shoulder, Fall Print Language Print Language: Greenlandic Discharge ED Provider: Shan Olmos Adult HPI General Chief complaint: Fall Stated complaint: AO Fall multiple lacerations head and shoulder Time Seen by Provider: 05/31/25 09:32 History of Present Illness HPI narrative: Cas Salcido is a 74-year-old man with a history of Parkinson disease, obstructive sleep apnea, coronary artery disease, type 2 diabetes, A-fib on Eliquis who presents to the emergency department after a fall. Approximately 8 AM this morning, patient was getting out of bed when he fell backwards and hit his head on the dresser. He denies any loss of consciousness. He is complaining of a headache. He denies any chest pain or abdominal pain or shortness of breath. He also hit his left shoulder and has scrapes on his left shoulder and pain to the area. He was noted to have a few cuts to his scalp. He denies any neck pain or back pain. Family states that he was off of his Parkinson medication for some time and was having falls nearly every day, however he is back on his medication and has not fallen in at least a week prior to today. Related Data Home Medications ?Medication ?Instructions ?Recorded ?Confirmed apixaban 5 mg tablet (Eliquis) 5 mg PO BID 08/30/23 03/19/25 carvedilol 25 mg tablet 25 mg PO ONCE 08/30/23 03/19/25 empagliflozin 25 mg tablet 25 mg PO DAILY 08/30/23 03/19/25 (Jardiance) rosuvastatin 20 mg tablet 20 mg PO DAILY 08/30/23 03/19/25 sitagliptin phosphate 100 mg 100 mg PO DAILY 08/30/23 03/19/25 tablet (Januvia) tamsulosin 0.4 mg capsule 0.4 mg PO HS 10/25/23 03/19/25 Allergies Allergy/AdvReac Type Severity Reaction Status Date / Time No Known Allergies Allergy Verified 03/19/25 08:36 [facility] Disclaimer: The information contained in this section may have been updated after the patient was seen, as this information can be updated by other users. Medical History ROHITH (obstructive sleep apnea) Neck pain Headache Cataracts, bilateral Arthritis Surgical History History of hernia surgery History of bilateral cataract extraction Family History Other COPD (chronic obstructive pulmonary disease) Coronary artery disease Hyperlipidemia Hypertension Social History Smoking Status: Never smoker alcohol intake: current alcohol intake frequency: other substance use type: denies use current occupational status: retired Travel in the last 8 weeks?: None household members: spouse housing: house marital status: number of children: 7 Have you lived/traveled outside [place] in past 30 days?: No Contact w/someone who lives/traveled outside US past 30 days?: No Exposure to someone with infectious disease in past 14 days?: No Do you have a fever (greater than 100.4 F or 38 C)?: No Have you tested positive for COVID-19?: No Exposed to someone with COVID-19 in past 14 days?: No Do you have a sore throat?: No Do you have a cough?: No Do you have any weakness?: No Do you have any diarrhea?: No Are you experiencing any unusual bleeding?: No Do you have any muscle aches/pain?: No Do you have any abdominal pain?: No Are you experiencing loss of taste or smell?: No Other Medical History Have you received the Pneumonia Vaccine: Yes ROS Obtained: Yes Systems reviewed as appropriate & no additional complaints except as documented Physical Exam General General appearance: alert and in no apparent distress Head Head exam: other (5 cm laceration over the left parietal scalp. 2 cm laceration to occipital scalp. Bleeding controlled.) Eye Eye exam: Present normal appearance and PERRL ENT ENT exam: Present normal external ear exam Neck Neck exam: Present full ROM Chest Chest inspection: Present symmetric chest wall rise Respiratory Respiratory exam: Present normal lung sounds bilaterally; Absent respiratory distress, wheezes or stridor Cardiovascular Cardiovascular exam: Present regular rate and irregular rhythm Abdominal Exam Abdominal exam: Present soft; Absent tenderness or guarding exam: Present deferred Extremities Exam Extremities exam: Present normal inspection and other (Left shoulder over the deltoid with 3 superficial skin tears but no deep lacerations. Some mild tenderness in this area. Full 5 out of 5 strength in bilateral upper extremities with flexion and extension and abduction.) Back Exam Back exam: Present normal inspection; Absent vertebral tenderness (No cervical, thoracic or lumbar spine tenderness or step-off.) Neurological Exam Neurological exam: Present alert and oriented X3 Psychiatric Psychiatric exam: Present normal affect Skin Skin exam: Present warm and dry Medical Decision Making Medical Records Screening: Per USPSTF and CDC recommendations, given the prevalence of disease in our region, it is our hospital?s policy to screen for HIV and viral Hepatitis for all patients aged 18 and over and those with ongoing risk factors. Zachariah Inquiry Pt receiving controlled substance: No Vital Signs: 05/31/25 09:39 05/31/25 09:42 05/31/25 10:30 Temperature 98.2 F Temperature Source Oral Pulse Rate 88 95 H Pulse Rate [Left] 93 H Respiratory Rate 20 29 H Blood Pressure 120/89 129/91 H Blood Pressure [Right Arm] 120/89 Blood Pressure Mean [Right Arm] 99 02 Sat by Pulse Oximetry 97 96 94 L Oxygen Delivery Method Room Air Nasal Cannula Room Air Lab Data Lab Results 05/31/25 09:36: WBC 7.8, RBC 5.48, Hgb 16.5, Hct 49.0, MCV 89.4, MCH 30.1, MCHC 33.7, RDW 13.4, Plt Count 178, MPV 9.3, Neut % (Auto) 61.0, Lymph % (Auto) 25.8, Rolette % (Auto) 8.8, Eos % (Auto) 2.4, Baso % (Auto) 1.0, Neut # (Auto) 4.8, Lymph # (Auto) 2.0, Rolette # (Auto) 0.7, Eos # (Auto) 0.2, Baso # (Auto) 0.1, PT 12.0, INR 1.09, APTT 27.4, Sodium 137, Potassium 3.9, Chloride 104, Carbon Dioxide 26, Anion Gap 10.9, BUN 13, Creatinine 0.90, Estimated Creat Clear 114, Estimated GFR 82, Est GFR ( Amer) 100, Glucose 127 H, Calcium 9.1, Total Bilirubin 1.9 H, AST 27, ALT 20, Alkaline Phosphatase 84, Troponin I < 0.01, Total Protein 7.2, Albumin 4.4, Globulin 2.8, Albumin/Globulin Ratio 1.6 05/31/25 09:36 05/31/25 09:36 Orders (Tests/Meds): ED MEDICATIONS Discontinued Medications Generic Name Dose Route Start Last Admin Trade Name Heidi PRN Reason Stop Dose Admin Acetaminophen 1,000 mg 05/31/25 09:36 05/31/25 10:11 Acetaminophen 500mg Tab PO 05/31/25 09:37 1,000 mg ONCE ONE Administration Tetanus/Reduced Diphtheria/Acell Pertussis 0.5 ml 05/31/25 09:36 05/31/25 10:11 Tet/Diphth/Pert-Adult 0.5ml Syringe IM 05/31/25 09:37 0.5 ml .ONCE ONE Administration ORDERS Category Date Time Status CT cervical spine wo con Stat Cat Scan 05/31/25 09:[address] head/brain wo con Stat Cat Scan 05/31/25 09:36 Completed CXR --portable [XR chest portable] Stat Exams 05/31/25 09:36 Completed Shoulder XR left minimum 2 views [XR shoulder LT min 2V Exams 05/31/25 09:36 Completed ] Stat CBC w/Auto Diff [Complete Blood Count Auto Diff] Stat Lab 05/31/25 09:36 Completed CMP [Comprehensive Metabolic Panel] Stat Lab 05/31/25 09:36 Completed HIV Combo Stat Lab 05/31/25 09:36 Received Hepatitis C Ab Qual. W/ RFX Stat Lab 05/31/25 09:36 Received PT INR [Prothrombin Time INR] Stat Lab 05/31/25 09:36 Completed PTT [Activated Partial Thrombo Time] Stat Lab 05/31/25 09:36 Completed Troponin I Q3H Lab 05/31/25 12:45 Ordered Troponin I Q3H Lab 05/31/25 15:45 Ordered Troponin I Stat Lab 05/31/25 09:36 Completed Medical Decision Narrative: Cas Salcido is a 74-year-old man with a history of Parkinson disease, obstructive sleep apnea, coronary artery disease, type 2 diabetes, A-fib on Eliquis who presents to the emergency department after a fall. Approximately 8 AM this morning, patient was getting out of bed when he fell backwards and hit his head on the dresser. He denies any loss of consciousness. He is complaining of a headache. He denies any chest pain or abdominal pain or shortness of breath. He also hit his left shoulder and has scrapes on his left shoulder and pain to the area. He was noted to have a few cuts to his scalp. He denies any neck pain or back pain. Family states that he was off of his Parkinson medication for some time and was having falls nearly every day, however he is back on his medication and has not fallen in at least a week prior to today. On arrival, patient is normotensive, heart rate 93 bpm, afebrile, breathing comfortably on room air with oxygen saturation 97% SpO2. Physical exam, stated above, revealed an overall well-appearing male in no distress. He is alert and oriented and answering questions appropriately. He has approximately 5 cm laceration over the left parietal scalp and a 2 cm laceration to the occipital scalp. No tenderness in the midline C/T/L-spine. No evidence of depressed skull fracture. He is moving all extremities. 5 out of 5 strength in the bilateral upper extremities. He has some superficial skin tears over the left shoulder over the deltoid but no deep lacerations. Differential diagnosis includes, but is not limited to: Intracranial hemorrhage, skull fracture, cervical spine injury, left shoulder fracture, AC joint separation, cardiac arrhythmia, electrolyte derangement, metabolic derangement, among others. The most morbid conditions were considered and workup was based on these. Workup in the emergency department included: CT head without contrast, CT cervical spine without contrast, CBC with differential, CMP, EKG, troponin, PT/INR, PTT, chest x-ray, left shoulder x-ray. Patient was given 1 g of oral Tylenol and a tetanus booster as he does not know when his last tetanus shot was. EKG was interpreted by me personally and shows evidence of atrial fibrillation but no ST elevation or depression. No rapid ventricular response. QTc normal at 392. Chest and shoulder x-rays interpreted by me personally. No acute findings within the chest. No shoulder fracture or dislocation. CT imaging was interpreted by me personally. No intracranial hemorrhage, mass or midline shift. No cervical spine fracture or malalignment. See radiology report for final details. Lab work is grossly unremarkable nonactionable except for mildly elevated bilirubin of 1.9 but liver enzymes otherwise within normal limits. Troponin less than 0.01. Glucose mildly elevated at 127. Coagulation studies within normal limits. Electrolytes within normal limits. No anemia. No leukocytosis. Platelets within normal limits. On reassessment, patient remained stable condition. His scalp lacerations were repaired using rhea. See procedure note for details. Steri-Strips were placed over the skin tears to his left shoulder. Patient was given strict return precautions. Family notes that he is currently in physical therapy and I encouraged them to continue attending physical therapy appointments for improved strength to help prevent falls in the future. All questions were answered. They demonstrated understanding and were in agreement this plan. He was then discharged from the emergency department in stable condition. Critical Care Critical Care Time Critical Care Time: No
[2025-05-31 09:39] VITALS: BP 120/89; PULSE 93; RESP 20; TEMP 36.8; O2SAT 97; BMI 38.3
[2025-05-31 09:42] VITALS: BP 120/89; PULSE 88; O2SAT 96
[2025-05-31 09:47] LABS: Hematocrit 49.0 % (42.0-52.0); Hemoglobin 16.5 g/dL (14.1-18.0); Immature Granulocytes % 1.0 %; Mean Corpuscular HGB Conc 33.7 g/dL (31.8-35.4); Mean Corpuscular Hemoglobin 30.1 pg (27.0-31.2); Mean Corpuscular Volume 89.4 fl (80-94); Nucleated Red Blood Cells % 0 %; Platelet Count 178 K/mm3 (142-424); Red Blood Count 5.48 M/mm3 (4.60-6.20); Red Cell Distribution Width-SD 44.0 fL; White Blood Count 7.8 K/mm3 (4.8-10.8)
[2025-05-31 09:59] LABS: Alanine Aminotransferase 20 U/L (12-78); Albumin Level 4.4 g/dl (3.5-5.0); Albumin/Globulin Ratio 1.6 (1.1-1.8); Alkaline Phosphatase 84 U/L (38-126); Anion Gap 10.9 mEq/L (5-15); Aspartate Amino Transferase 27 U/L (17-59); Bilirubin,Total 1.9 mg/dl (0.2-1.3); Blood Urea Nitrogen 13 mg/dl (9-20); Calcium 9.1 mg/dl (8.4-10.2); Carbon Dioxide 26 mmol/L (22.0-30.0); Chloride 104 mmol/L (98-107); Creatinine Clearance Estimated 114 mL/min (50-200); Creatinine,Serum 0.90 mg/dl (0.66-1.25); Estimated Glomerular Filt Rate 82 ml/min (>60); GFR (African American) 100 ML/MIN (>60); Globulin 2.8 g/dL (1.3-3.2); Glucose 127 mg/dl (74-100); Potassium 3.9 mmoL/L (3.5-5.1); Sodium 137 mmol/L (136-145); Total Protein,Serum 7.2 g/dl (6.3-8.2)
[2025-05-31 10:02] LABS: Activated Partial Thrombo Time 27.4 seconds (22.8-30.6); INR 1.09 (0.9-1.1); Prothrombin Time 12.0 seconds (10.1-12.5)
[2025-05-31 10:11] LABS: Troponin I < 0.01 ng/ml (0.00-0.034)
[2025-05-31] MEDS: ACETAMINOPHEN 500MG TAB 1000 MG PO (10:11)
[2025-05-31] MEDS: TET/DIPHTH/PERT-ADULT 0.5ML SYRINGE 0.5 ML IM (10:11)
[2025-05-31 10:30] VITALS: BP 129/91; PULSE 95; RESP 29; O2SAT 94
[2025-05-31 11:00] VITALS: BP 127/69; PULSE 102; RESP 25; O2SAT 96
[2025-05-31 11:14] LABS: Hepatitis C Ab Qual. W/ RFX NEGATIVE (Negative)
[2025-05-31 11:20] VITALS: BP 127/69; PULSE 92; RESP 18; TEMP 36.6; O2SAT 95
== END 2025-05-31 11:21 | disposition home or self-care (01) ==
PROVIDERS: Emergency Provider Student in an Organized Health Care Education/Training Program; PCP Emergency Medicine
DX: S01.01XA Laceration without foreign body of scalp, initial encounter (principal); S40.212A Abrasion of left shoulder, initial encounter; I10 Essential (primary) hypertension; W19.XXXA Unspecified fall, initial encounter
CPT/HCPCS: 12002; 70450; 71045; 72125; 73030; 80053; 84484; 85025; 85610; 85730; 86803; 87389; 90471; 90715; 93005; 99285